=== PATIENT | male | born 1945 | race Caucasian/White ===

== ENCOUNTER 2021-06-13 07:22 | Outpatient (CLI) | payer MEDICARE, OTHER, SELFPAY ==
[2021-06-13] VITALS (10 sets, daily range): BP systolic 139–163; BP diastolic 78–95; PULSE 60–98; RESP 14–18; TEMP 36.6–36.8; O2SAT 96–99; BMI 25.2
--- NOTE | 2021-06-13 07:33 | DI.RAD.S_ITS ---
PROCEDURE: FL INJECT SPINE FOR CT MYELO INDICATIONS: Radiculopathy, lumbar region COMPARISON: None. TECHNIQUE: The indications, alternatives, benefits, risks and complications of the procedure were explained to the patient. Written informed consent was obtained and placed in the chart. The patient was placed in a prone position on the fluoroscopy table, and a level was chosen for percutaneous access under fluoroscopic guidance. The skin was prepped and draped in a sterile fashion. After local anaesthetic, a spinal needle was then used to enter the intrathecal space, with return of clear cerebrospinal fluid. 10 mL of Isovue M-300 were administered intrathecally under fluoroscopic visualization. The needle was then withdrawn, and a bandage applied to the puncture site. Fluoroscopic spot films were then acquired in various positions. FINDINGS: Standing frontal, lateral, and oblique views demonstrate no significant central canal stenoses. Access level: L2-L3 Medications: 1% lidocaine for local anaesthesia. Complications: None. Patient was transferred to CT for subsequent CT myelogram. IMPRESSION: Successful fluoroscopically guided administration of iodinated contrast into the lumbar spine central canal for CT myelogram. Dictated by: Elizabeth Fried MD, PhD on 06/13/2021 at 13:54 Approved by: Elizabeth Fried MD, PhD on 06/13/2021 at 13:54
[2021-06-13 07:50] LABS: Hematocrit 40.1 % (41-53); Platelet Count 127 X10^3/uL (150-400)
[2021-06-13 07:57] LABS: INR 1.1 (0.9-1.3); Prothrombin Time 11.7 SECONDS (10.1-12.7)
--- NOTE | 2021-06-13 09:15 | DI.CT.S_ITS ---
PROCEDURE: CT LUMBAR SPINE W CON INDICATIONS: Radiculopathy, lumbar region TECHNIQUE: After the intrathecal administration of 15 mL intrathecal contrast, 3 mm thick sections acquired from T12 to the sacrum. Sagittal and coronal reformats were then constructed. For radiation dose reduction, the following was used: automated exposure control. COMPARISON: Outside Facility, RG, CT LUMBAR POST MYELO W / CONTRAST, 04/05/2018, 10:10. FINDINGS: Image quality: Excellent. Bones: Transitional anatomy of what appears to be lumbarization of the 1st sacral vertebral body. For purposes of this exam, vertebral body numbering is in keeping with previous exam. There is grade 1 retrolisthesis of T12 on L1, L1 on L2, grade 1 anterolisthesis of L3 on L4 measuring 4 mm, 6 mm and 3 mm respectively. There is multilevel degenerative disc space narrowing, with vacuum disc identified at L1-2 and L4-5. Multilevel osteophytes are present most prominent at L4. L1-L2: Mild disc bulge with subarticular recess narrowing. There is minimal effacement of the anterior thecal sac, slightly progressive compared to prior exam. Mild left foraminal narrowing, more prominent when compared to prior exam. Facet hypertrophy is present. L2-3: There has been interval bilateral laminectomy. No spinal stenosis, markedly improved compared to prior exam. [id number] left foraminal narrowing with facet hypertrophy, mildly progressive. L3-4: There has been interval bilateral laminectomies. No spinal stenosis. Mild right and moderate left foraminal narrowing is present, progressive bilaterally most notable on the left. L4-5: Moderate to severe spinal stenosis is present with mild disc bulge. Moderate bilateral foraminal narrowing, slightly progressive compared to prior exam. L5-S1 mild disc bulge without spinal stenosis. Severe bilateral foraminal narrowing with facet and ligamentum flavum hypertrophy, relatively unchanged. Miscellaneous: Nerve roots appear unremarkable throughout. No nerve root clumping to suggest arachnoiditis. As previously noted, there is a filling defect identified within the colonic wine a measuring approximately 4.5 x 5.7 x 6.2 mm, located adjacent to the endplate of L5. It is unchanged. Conus ends at L1. IMPRESSION: 1. Interval laminectomies with improvement of previous spinal stenosis. 2. Multilevel foraminal narrowing demonstrating areas of interval progression as above with facet hypertrophy. 3. Unchanged appearance of intrathecal nodule, remaining indeterminate in origin. Dictated by: Sapphire Barkley M.D. on 06/13/2021 at 15:12 Approved by: Sapphire Barkley M.D. on 06/13/2021 at 15:36
== END 2021-06-13 11:42 | disposition home or self-care (01) ==
PROVIDERS: Referring Provider Orthopaedic Surgery; Visit Provider Orthopaedic Surgery
DX: M54.16 Radiculopathy, lumbar region (principal)
CPT/HCPCS: 36415; 62284; 72132; 77003; 85014; 85049; 85610

== ENCOUNTER 2022-06-15 09:54 | Day surgery (SDC) | payer MEDICARE, OTHER, SELFPAY ==
--- NOTE | 2022-06-15 | PATH_ITS ---
[facility] Accession Number: [id number] . 01 Material submitted: . PART A: stomach - ANTRUM PART B: gastrointestinal site - GASTRIC POLYP PART C: esophagus, E-G Junction - GE JUNCTION . 01 Diagnosis: A. Stomach, Antrum, Biopsy: Antral mucosa with mild chronic gastritis. Negative for Helicobacter organisms by immunohistochemistry. Negative for intestinal metaplasia. Negative for dysplasia or malignancy. . B. Stomach, Polyp, Biopsy: Fundic gland polyp. No evidence of Helicobacter organisms on H/E stain. Negative for intestinal metaplasia. Negative for dysplasia and malignancy. . C. Gastroesophageal Junction, Biopsy: Squamocolumnar junctional mucosa with specialized intestinal metaplasia, consistent with Kelley's esophagus. Negative for dysplasia and malignancy. [facility] 06/18/2022 1706 Local . 01 Electronically signed: . Luisa Kemp MD, Pathologist NPI- [id number] . 01 Gross description: . Part A: ANTRUM: Received in formalin is 1 fragment(s) of pino, soft tissue measuring 0.5 x 0.3 x 0.2 cm submitted entirely in 1 cassette(s) Part B: GASTRIC POLYP: Received in formalin is 1 fragment(s) of pino, soft tissue measuring 0.3 x 0.2 x 0.2 cm submitted entirely in 1 cassette(s) Part C: GE JUNCTION: Received in formalin are 2 fragment(s) of pino, soft tissue measuring 0.5 x 0.2 x 0.1 cm to 0.1 x 0.1 x 0.1 cm submitted entirely in 1 cassette(s) /CPE 06/16/2022 0918 Local . 01 Microscopic: . A. An immunohistochemical stain was performed to evaluate for Helicobacter organisms and is negative. The control stain showed appropriate reactivity. . * This test was developed and its performance characteristics determined by [facility]. It has not been cleared or approved by the U.S. Food and Drug Administration. The FDA has determined that such clearance or approval is not necessary. This test is used for clinical purposes. It should not be regarded as investigational or for research. . 01 Pathologist provided ICD-10: K22.70, K31.7 . 01 CPT . 548172, [id number], [id number], [id number] Performed at: 01 [facility] [address] [place] [address], [place], [place] [id number] MD Ra Levy MD Phone: [phone]
[2022-06-15 10:13] VITALS: BP 166/96; PULSE 60; RESP 16; TEMP 36.4; O2SAT 98; BMI 24.6
--- NOTE | 2022-06-15 10:22 | PM.HP.1 ---
History of Present Illness History of Present Illness Date Patient Seen: 06/15/22 Time Patient Seen: 10:22 Chief complaint: SDC Narrative: I reviewed my office note. History of short-segment Barretts. He is alternating famotidine with omeprazole. He has excess mucus production and intermittent hoarseness.. He did have some improvement by eliminating caffeine of late. He is a pending ENT visit in a few days' time. Patient History Medical History Asthma GERD (gastroesophageal reflux disease) Gout Hypercholesteremia Hypertension Pacemaker Rotator cuff arthropathy of left shoulder Tibia/fibula fracture Family & Social History Tobacco & Substance use: Smoking Status Never smoker alcohol intake current alcohol intake frequency a few times a week Substance Use Type does not use Meds Home Medications and Allergies Home Medications Medication Instructions Recorded Confirmed Type albuterol sulfate 108 mcg inhalation DIRECTED 06/13/21 06/13/21 History allopurinol 100 mg PO DAILY 06/13/21 06/13/21 History amlodipine 2.5 mg PO BID 06/13/21 06/13/21 History carvedilol 12.5 mg PO BID 06/13/21 06/13/21 History famotidine 20 mg PO Q OTHER DAY 06/13/21 06/13/21 History losartan 50 mg PO BID 06/13/21 06/13/21 History naltrexone See Rx Instructions .Route .COMPLEX 06/13/21 06/13/21 History omeprazole 20 mg PO DIRECTED 06/13/21 06/13/21 History sildenafil 20 mg PO DAILY 06/13/21 06/13/21 History Allergies Allergy/AdvReac Type Severity Reaction Status Date / Time No Known Drug Allergies Allergy Verified 06/13/21 07:59 Review of Systems Review of Systems ROS: Yes All systems reviewed with the patient and are negative except as otherwise documented Exam Const General: cooperative HENMT Head: normal to inspection Eyes General: appearance normal, both eyes and all related structures Neck Neck: normal visual inspection Chest Chest: normal inspection of the chest Resp Effort & Inspection: normal respiratory effort Cardio Rate: regular rate GI Inspection: normal to inspection Skin General: no rashes or lesions noted Neuro General: patient alert and patient awake Extrem General: normal to inspection and no pedal edema Psych Appearance: grossly normal Assessment & Plan Assessment & Plan narrative: 76-year-old male with a history of GERD and Barretts. He is indicated for surveillance EGD today. He also wonders whether his excess mucus production and hoarseness might be related to under treated GERD. Time Spent With Patient Critical Care time: I spent a total of [] minutes of critical care time on this patient's care today; this time is exclusive of procedural time.
[2022-06-15] MEDS: LACTATED RINGERS 1,000 ML 84 ML IV (10:28)
[2022-06-15 10:44] LABS: COVID19 -Nasal RAPID Negative (Negative)
--- NOTE | 2022-06-15 10:45 | PM.PREOP ---
Pre-operative Note COVID-19 COVID-19 status: Negative Result date/Date tested (Pos, Neg/Pending): 06/12/22 Criteria for continued procedure: Possibility delay results in more complex future surgery or treatment Interval Note History & Physical reviewed/Exam performed by Physician: Yes Changes to H&P: No ASA Class (for procedural sedation): III
--- NOTE | 2022-06-15 11:05 | P.OP.EGD_ITS ---
Operative Date/Time/Diagnoses Date of procedure: 06/15/22 Time of procedure: 11:05 Pre-op diagnosis: History of Barretts, hoarseness, phlegm, reflux Post-op diagnosis: same Procedure & Clinicians Study performed: EGD with biopsies Same procedure as scheduled: Yes Indications: History of Barretts, hoarseness, phlegm, reflux Surgeon: Steve Turpin Procedure Notes SCOAP/Timeout: Done Procedure in detail: After the risks and benefits were explained, written and verbal informed consent was obtained. The patient was brought into the procedure room and placed into the left lateral decubitus position. Please see nurse broadcast operations director notes for sedation details. The scope was introduced into the mouth through the bite block and advanced under direct visualization to the 2nd portion of the duodenum. The scope was slowly withdrawn carefully examining the mucosa for any defects or lesions. Retroflexed views were accomplished in the stomach. The stomach was decompressed, the scope was then removed from the patient who tolerated the procedure well. Sedation minutes: 13 Complications: none Impression: 1. Duodenum: This was visually unremarkable from the bulb through the 2nd portion. 2. Stomach: No ulcers. No outlet obstruction. No mass lesions. Mild gastropathy was appreciated and biopsies were therefore taken from the antrum for exclusion of H pylori. Retroflexed views of the LES were unremarkable. There were a few diminutive benign-appearing polyps in the body and proximal stomach. One of these was sampled for histopathologic analysis. 3. Esophagus: The squamocolumnar junction generally correlated with the top of the gastric folds. GE junction was at 45 cm from the incisors. If this is inde ed Barretts, it would be C 0 M 0.5. There was evidence of very subtle LA grade a erosive esophagitis. A small subtle sliding hiatal hernia was noted. Biopsies were taken from the squamocolumnar junction in the 6 and 9:00 a.m. location. No additional pathology was appreciated throughout the esophagus with the exception of a small submucosal 6-7 mm nodule at about 20 cm from the incisors. I attempted to see if this demonstrated a classic pillow sign but the lesion did not demonstrate any pillowing and in essence proved to be fairly mobile under the closed forceps. Endoscopic diagnosis 1. Mild gastropathy 2. Diminutive gastric polyps 3. Subtle sliding hiatal hernia 4. LA grade a erosive esophagitis 5. Possible short-segment (C 0 M 0.5) Barretts 6. Proximal esophageal small submucosal nodule Post-procedure Plan for aftercare: 1. Await histopathology. 2. Consider increasing anti-reflux therapy to omeprazole once daily. 3. If Kelley's is confirmed, surveillance EGD will be indicated for 3 years. 4. It would be quite reasonable to pursue an early repeat surveillance with endoscopic ultrasound of the upper esophagus to better characterize the small submucosal lesion. Disposition: PACU
[2022-06-15 11:10] VITALS: BP 113/73; PULSE 60; RESP 18; TEMP 36.4; O2SAT 96
[2022-06-15 11:19] VITALS: BP 134/87; PULSE 61; RESP 16; TEMP 36.4; O2SAT 97
[2022-06-15 11:24] VITALS: BP 143/92; PULSE 60; RESP 18; TEMP 36.3; O2SAT 98
== END 2022-06-15 11:36 | disposition home or self-care (01) ==
PROVIDERS: PCP Registered Nurse; Referring Provider Internal Medicine Gastroenterology; Visit Provider Internal Medicine Gastroenterology
PROC: 0DJ08ZZ Inspection of Upper Intestinal Tract, Via Natural or Artificial Opening Endoscopic (ICD-10-PCS; CPT 43235; principal; 2022-06-15 11:00)
DX: K21.00 Gastro-esophageal reflux disease with esophagitis, without bleeding (principal); K31.7 Polyp of stomach and duodenum; Z20.822 Contact with and (suspected) exposure to COVID-19; K44.9 Diaphragmatic hernia without obstruction or gangrene; K22.70 Barrett's esophagus without dysplasia; K31.9 Disease of stomach and duodenum, unspecified; K22.89 Other specified disease of esophagus; K29.50 Unspecified chronic gastritis without bleeding
CPT/HCPCS: 43239; 87635; J2704; J3010

== ENCOUNTER → 2022-10-07 10:11 | Outpatient (CLI) | payer MEDICARE, OTHER, SELFPAY ==
--- NOTE | 2022-10-07 | DI.US.S_ITS ---
PROCEDURE: US ABD AORTA ANEURYSM SCREEN INDICATIONS: FAM HX AAA TECHNIQUE: Real time scanning was performed of the aorta and iliac arteries, with image documentation. COMPARISON: None. FINDINGS: Aorta: Proximal aortic diameter measures 2.4 cm. Mid-aorta measures 2.0 cm. Distal aortic diameter is 2.0 cm. Iliac arteries: Right common iliac artery measures 1.1 cm. Left common iliac artery measures 0.9 cm. IMPRESSION: No aneurysmal dilation. Dictated by: Sapphire Barkley M.D. on 10/07/2022 at 15:42 Approved by: Sapphire Barkley M.D. on 10/07/2022 at 15:44
== END ==
PROVIDERS: PCP Registered Nurse; Referring Provider Registered Nurse; Visit Provider Registered Nurse
DX: Z13.6 Encounter for screening for cardiovascular disorders (principal)
CPT/HCPCS: 76706

== ENCOUNTER → 2022-11-09 09:00 | Outpatient (CLI) | payer MEDICARE, OTHER, SELFPAY ==
--- NOTE | 2022-11-09 | DI.ECHO.S_ITS ---
[facility] +---------+ : : [address] [place] : : : : [id number] : : : : Phone: [phone]+ Echocardiogram Report + + :Name: YVES COLEMAN Study Date: 11/09/2022 Height: 74 in : :[facility] ReadingLocation: Weight: 192 lb : : Gender: Male BSA: 2.1 m2 : :: 1945 Age: 77 yrs BP: 151/88 mmHg: :Reason For Study: THORACIC AORTIC ECTASIA : :Ordering Physician: LÓPEZ KIDD Performed By: Charo Das : :Referring: LÓPEZ KIDD : + + Interpretation Summary The ejection fraction is estimated to be 55-60%. Left ventricular wall motion is normal. There is a catheter/pacemaker lead seen in the right atrium. There is mild to moderate mitral regurgitation. The right ventricular systolic pressure is estimated to be at least 29 mmHg based on an estimated right atrial pressure of 8 mm Hg. There is mild to moderate tricuspid regurgitation. Procedure: A two-dimensional transthoracic echocardiogram with color flow and Doppler was performed. The study quality was technically adequate. There is no prior echocardiogram noted for this patient. The patient has a paced rhythm. The heart rate ranged between 60 bpm during the study. Left Ventricle: The left ventricle is normal in size and wall thickness. The ejection fraction is estimated to be 55-60%. Left ventricular wall motion is normal. Right Ventricle: There is a pacemaker lead in the right ventricle. The right ventricle is normal in size and function. Atria: The left atrium is mildly dilated. Right atrial size is normal. There is a catheter/pacemaker lead seen in the right atrium. There is no Doppler evidence for an interatrial shunt. Mitral Valve: The mitral valve leaflets appear mildly thickened, but open well. There is mild to moderate mitral regurgitation. Aortic Valve: The aortic valve is trileaflet. The aortic valve opens well. There is no aortic valve stenosis. There is trace aortic regurgitation. Tricuspid Valve: The tricuspid valve is normal in structure and function. The right ventricular systolic pressure is estimated to be at least 29 mmHg based on an estimated right atrial pressure of 8 mm Hg. There is mild to moderate tricuspid regurgitation. Pulmonic Valve: The pulmonic valve leaflets are thin and pliable; valve motion is normal. There is mild pulmonic regurgitation. Great Vessels: The aortic root is normal size. The ascending aorta is mildly enlarged. The IVC is dilated (diameter is greater than 2.1 cm) yet it collapses greater than 50% with a sniff. This suggests a right atrial pressure of 8 mm Hg. Pericardium/ Pleura There is no pericardial effusion. There is no pleural effusion. MMode/2D Measurements & Calculations LVIDd: 5.7 cm LVOT diam: 2.5 cm LVIDs: 3.7 cm Ao root diam: 3.4 cm FS: 35.8 % asc Aorta Diam: 3.9 cm EPSS: 0.96 cm Ao Arch Diam (Prox Trans): 3.4 cm IVSd: 0.79 cm LVPWd: 0.87 cm LV bailey. diameter/BSA (cm/m^2): 2.7 LV sys. diameter/BSA (cm/m^2): 1.7 LA A2 area: 25.0 cm2 RA long axis: 6.0 cm LA A4 area: 24.3 cm2 RA area: 20.3 cm2 LA length (vol): 5.9 cm RA vol: 58.4 ml LA vol: 87.9 ml RA : 27.3 ml/m2 LA vol index: 41.2 ml/m2 IVC diam: 2.1 cm RVD1 (basal): 3.7 cm RVD2 (mid): 3.0 cm TAPSE: 2.7 cm Doppler Measurements & Calculations Ao V2 max: 132.5 cm/sec LVOT Max Harjit: 108.2 cm/sec Ao V2 mean: 92.8 cm/sec LV V1 max P.7 mmHg Ao max P.0 mmHg LV V1 VTI: 21.9 cm Ao mean P.8 mmHg PURA(I,D): 3.9 cm2 Ao V2 VTI: 27.9 cm PURA(V,D): 4.0 cm2 sev ratio: 0.79 PURA indexed to BSA (cm^2/m^2): 1.8 MV E max harjit: 41.7 cm/sec TR max harjit: 229.8 cm/sec MV A max harjit: 54.6 cm/sec TR max P.1 mmHg MV E/A: 0.76 PA V2 max: 129.1 cm/sec Med Peak E' Harjit: 4.1 cm/sec PA V2 mean: 86.1 cm/sec E/E' med: 10.1 PA mean P.5 mmHg Lat Peak E' Harjit: 4.0 cm/sec PA pr(Accel): 25.9 mmHg E/E' lat: 10.4 E/e' average: 10.3 MV dec time: 0.29 sec SV([facility]): 108.0 ml Reading Physician:12:47 PM
== END ==
PROVIDERS: PCP Registered Nurse; Referring Provider Registered Nurse; Visit Provider Registered Nurse
DX: I77.810 Thoracic aortic ectasia (principal); I08.1 Rheumatic disorders of both mitral and tricuspid valves
CPT/HCPCS: 93306